=== PATIENT | male | born 1935 | race Caucasian/White ===

== ENCOUNTER 2017-06-10 20:39 | Emergency (ER) | payer MEDICARE, BC ==
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
== END 2017-06-10 21:45 | disposition home or self-care (01) ==
LOC: FB.ED 20:39
DX: Z48.817 Encounter for surgical aftercare following surgery on the skin and subcutaneous tissue (principal); I10 Essential (primary) hypertension; H91.90 Unspecified hearing loss, unspecified ear; H93.13 Tinnitus, bilateral; M19.90 Unspecified osteoarthritis, unspecified site; Z95.5 Presence of coronary angioplasty implant and graft; Z96.651 Presence of right artificial knee joint; Z96.652 Presence of left artificial knee joint; Z98.1 Arthrodesis status; Z98.49 Cataract extraction status, unspecified eye
CPT/HCPCS: 99282